=== PATIENT | female | born 1980 | race Caucasian/White ===

== ENCOUNTER 2017-01-25 13:39 | Emergency (ER) | payer SELFPAY ==
[~2017-01-25 13:39] MED LIST: ALBUTEROL SULF8.5 G1 INH; ALBUTEROL SULF8.5 GM IH; AMOXICILLIN500 M1 PO; ANTIDEPRESSANT; CELEBREX200 MG PO; DELTASONE10 MG PO; DESYREL150 MG PO; DIAZEPAM PO; ERY-TAB333 MG PO; FLEXERIL10 MG PO; GLUCOPHAGE500 MG; HYDROCODONE/APA1 CAP PO; IBUPROFEN200 M2 PO; INDOMETHACIN50 M1 PO; KEFLEX500 M2 PO; LEVAQUIN250 MG PO; LEXAPRO20 MG; LIDODERM30 EA TP; NAPROXEN500 MG PO; NO HOME MEDICATION XX; NORCO 5-325 TA1 EACH PO; NORCO 5/325 TAB1 TAB PO; NORCO 5/3251 TA1 PO; NORFLEX100 MG PO; PERCOCET 5/3251 TAB PO; PHENERGAN W/CO120 ML PO; PREDNISONE10 M1 PO; PREDNISONE10 MG PO; PROAIR HFA8.5 GM IH; PROAIR HFA8.5 GM INH; PROMETHAZI6.25 MG/3 PO; ROBITUSSIN AC PO; SYMBICORT 160-1 PUFF INH; SYMBICORT INH; TRAMADOL HCL50 MG PO; TYLENOL325 M2 PO; VALIUM2 MG PO; ZANAFLEX4 MG PO; ZITHROMAX250MG Z-PAK PO
[2017-01-25] MEDS ORDERED: MOBIC7.5 M2 PO (14:04)
[2017-01-25] MEDS ORDERED: ZANAFLEX4 M2 PO (14:05)
[2017-01-25] MEDS ORDERED: PENICILLIN V P500 M1 PO (14:48)
== END 2017-01-25 15:05 ==
LOC: EDMED 13:39
DX: K04.7 Periapical abscess without sinus (principal); F17.200 Nicotine dependence, unspecified, uncomplicated